=== PATIENT | male | born 1960 | race Caucasian/White ===

== ENCOUNTER 2024-02-07 18:43 | Emergency (ER) | payer SELFPAY ==
--- NOTE | 2024-02-07 19:32 | XR ---
EXAMINATION TYPE: XR chest 2V DATE OF EXAM: 02/07/2024 COMPARISON: 01/14/2014 INDICATION: Chest pain TECHNIQUE: Frontal and lateral views of the chest are obtained. FINDINGS: The heart size is normal. The pulmonary vasculature is normal. The lungs are clear. IMPRESSION: 1. No acute pulmonary process.
[2024-02-07 19:39] LABS: Basophils % (A) 1 %; Eosinophils # (A) 0.2 k/uL (0-0.7); Eosinophils % (A) 3 %; HCT 45.6 % (39.0-53.0); HGB 14.9 gm/dL (13.0-17.5); Lymphocytes # (A) 1.5 k/uL (1.0-4.8); Lymphocytes % (A) 19 %; MCH 33.4 pg (25.0-35.0); MCHC 32.6 g/dL (31.0-37.0); MCV 102.4 fL (80.0-100.0); Macrocytosis Slight; Mean Platelet Volume 7.3; Monocytes # (A) 0.4 k/uL (0-1.0); Monocytes % (A) 6 %; Neutrophils # (A) 5.3 k/uL (1.3-7.7); Neutrophils % (A) 70 %; Platelet Count 301 k/uL (150-450); RBC 4.45 m/uL (4.30-5.90); RDW 12.8 % (11.5-15.5); WBC 7.6 k/uL (3.8-10.6)
[2024-02-07 19:44] LABS: ALT 18 U/L (4-49); AST 27 U/L (17-59); African American GFR (CKD) 84 (>60 ml/min/1.73 sqM); Albumin 4.6 g/dL (3.5-5.0); Alkaline Phosphatase 52 U/L (38-126); Anion Gap 9 mmol/L; Blood Urea Nitrogen 16 mg/dL (9-20); Calcium 9.4 mg/dL (8.4-10.2); Carbon Dioxide 24 mmol/L (22-30); Chloride 105 mmol/L (98-107); Glucose 125 mg/dL (74-99); Magnesium 2.3 mg/dL (1.6-2.3); Non-African American GFR(CKD) 73 (>60 ml/min/1.73 sqM); Sodium 138 mmol/L (137-145); Total Bilirubin 0.8 mg/dL (0.2-1.3)
[2024-02-07 19:45] LABS: Partial Thromboplastin Time 24.9 sec (22.0-30.0); Prothrombin Time 11.3 sec (10.0-12.5)
[2024-02-07 19:52] LABS: Potassium 3.9 mmol/L (3.5-5.1)
--- NOTE | 2024-02-07 20:34 | ED ---
Chest Pain HPI - General Source: patient, RN notes reviewed Mode of arrival: ambulatory Limitations: no limitations <Kev Gillespie - Last Filed: 02/07/24 20:35> <Stacey Goddard - Last Filed: 02/08/24 01:35> - General Chief Complaint: Chest Pain Stated Complaint: chest pain Time Seen by Provider: 02/07/24 20:29 - History of Present Illness Initial Comments: Quick note 63-year-old male presenting to the ED with complaints of chest pain intermittent for the last 3 days. States it is left-sided in nature. Pain does not radiate. Also does note some pain of his left upper back. Pain does not seem to radiate from his chest. States he thought symptoms were due to to history of ulcers and has been taking his medications for this which seem to help. (Kev Gillespie) - Related Data Home Medications Medication Instructions Recorded Confirmed Mag Hydrox/Al Hydrox/Simeth 1 dose PO DIRECTED PRN 01/14/14 09/24/14 [Maalox] Omeprazole [PriLOSEC] 1 tab PO DAILY 01/14/14 09/24/14 Previous Rx's Medication Instructions Recorded Amoxicillin/Potassium Clav 1 each PO Q12HR #20 tab 09/24/14 [Augmentin 875-125 Tablet] Hydrocodone/Acetaminophen [[place] 1 each PO Q6HR PRN #20 tab 09/24/14 5-325] Ondansetron Odt [Zofran ODT] 4 mg PO Q8HR PRN #10 tab 09/24/14 Allergies Allergy/AdvReac Type Severity Reaction Status Date / Time No Known Allergies Allergy Verified 02/07/24 18:50 Review of Systems ROS Other: All systems not noted in ROS Statement are negative. <Kev Gillespie - Last Filed: 02/07/24 20:35> ROS Other: All systems not noted in ROS Statement are negative. <Stacey Goddard - Last Filed: 02/08/24 01:35> ROS Statement: Those systems with pertinent positive or pertinent negative responses have been documented in the HPI. Past Medical History Past Medical History: GERD/Reflux Additional Past Medical History / Comment(s): stomach ulcers, ibs History of Any Multi-Drug Resistant Organisms: None Reported Past Surgical History: No Surgical Hx Reported Past Psychological History: No Psychological Hx Reported Smoking Status: Never smoker Past Alcohol Use History: Occasional Past Drug Use History: None Reported <Kev Gillespie - Last Filed: 02/07/24 20:35> General Exam Limitations: no limitations <Kev Gillespie - Last Filed: 02/07/24 20:35> - General Exam Comments Initial Comments: Visual Physical Exam Vital signs reviewed General: Well-appearing, nontoxic, no acute distress. Head: Normocephalic, atraumatic Eyes: PERRLA, EOMI ENT: Airway patent Chest: Nonlabored breathing Skin: No visual rash, normal skin tone Neuro: Alert and oriented 3 Musculoskeletal: No gross abnormalities. Radial pulses equal and symmetric bilaterally. (Kev Gillespie) Course Vital Signs 02/07/24 02/07/24 02/07/24 18:48 21:55 22:55 Temperature 98.4 F 97.9 F 97.6 F Pulse Rate 85 66 66 Respiratory 18 16 16 Rate Blood Pressure 179/100 170/100 167/107 O2 Sat by Pulse 98 98 99 Oximetry Chest Pain MDM <Kev Gillespie - Last Filed: 02/07/24 20:35> <Stacey Goddard - Last Filed: 02/08/24 01:35> - MDM Quicknote portion performed. Signed Kev Gillespie PA-C (Kev Gillespie) Was pt. sent in by a medical professional or institution ([facility], WAREHOUSE MATERIAL HANDLER, urgent care, hospital, or snf...) When possible be specific @ -[No] Did you speak to anyone other than the patient for history (EMS, parent, family, police, friend...)? What history was obtained from this source @ -[No] Did you review nursing and triage notes (agree or disagree)? Why? @ -[I reviewed and agree with nursing and triage notes] Were old charts reviewed (outside hosp., previous admission, EMS record, old EKG, old radiological studies, urgent care reports/EKG's, snf records)? Report findings @ -[No old charts were reviewed] Differential Diagnosis (chest pain, altered mental status, abdominal pain women, abdominal pain men, vaginal bleeding, weakness, fever, dyspnea, syncope, headache, dizziness, GI bleed, back pain, seizure, CVA, palpatations, mental health, musculoskeletal)? @ -[not applicable] EKG interpreted by me (3pts min.). @ -Yes and demonstrates sinus rhythm with a rate of 76. GA interval 225. QRS 88. QTc of 404. No acute ST segment elevations or depressions X-rays interpreted by me (1pt min.). @ -[None done] CT interpreted by me (1pt min.). @ -[None done] U/S interpreted by me (1pt. min.). @ -[None done] What testing was considered but not performed or refused? (CT, X-rays, U/S, labs)? Why? @ -[None] What meds were considered but not given or refused? Why? @ -[None] Did you discuss the management of the patient with other professionals (professionals i.e. , PA, WAREHOUSE MATERIAL HANDLER, lab, RT, psych nurse, social group worker, acute care nurse practitioner, teacher, railroad police officer, case monitor)? Give summary @ -[No] Was smoking cessation discussed for >3mins.? @ -[No] Was critical care preformed (if so, how long)? @ -[No] Were there social determinants of health that impacted care today? How? (Homelessness, low income, unemployed, alcoholism, drug addiction, transportation, low edu. Level, literacy, decrease access to med. care, [facility], rehab)? @ -[No] Was there de-escalation of care discussed even if they declined (Discuss DNR or withdrawal of care, Hospice)? DNR status @ -[No] What co-morbidities impacted this encounter? (DM, HTN, Smoking, COPD, CAD, Cancer, CVA, ARF, Chemo, Hep., AIDS, mental health diagnosis, sleep apnea, mor bid obesity)? @ -[None] Was patient admitted / discharged? Hospital course, mention meds given and route, prescriptions, significant lab abnormalities, going to OR and other pertinent info. @ -[hospital course] Undiagnosed new problem with uncertain prognosis? @ -[No] Drug Therapy requiring intensive monitoring for toxicity (Heparin, Nitro, Insulin, Cardizem)? @ -[No] Were any procedures done? @ -[No] Diagnosis/symptom? @ -[default] Acute, or Chronic, or Acute on Chronic? @ -[default] Uncomplicated (without systemic symptoms) or Complicated (systemic symptoms)? @ -[default] Side effects of treatment? @ -[No] Exacerbation, Progression, or Severe Exacerbation? @ -[No] Poses a threat to life or bodily function? How? (Chest pain, [place], [place], pneumonia, PE, COPD, DKA, ARF, appy, cholecystitis, CVA, Diverticulitis, Homicidal, Suicidal, threat to staff... and all critical care pts) @ -[No] (Stacey Goddard) Disposition <Kev Gillespie - Last Filed: 02/07/24 20:35> Is patient prescribed a controlled substance at d/c from ED?: No Time of Disposition: 22:50 <Stacey Goddard - Last Filed: 02/08/24 01:35> Clinical Impression: Chest pain, Hypertension Disposition: HOME SELF-CARE Condition: Stable Instructions (If sedation given, give patient instructions): Chest Pain (ED) Additional Instructions: Please purchase a blood pressure cuff. Check your blood pressure twice daily and keep a log. Follow-up with your primary care doctor and discuss your blood pressure readings as well as going on another medication for your high cholesterol. I recommend a stress test and an echo of your heart. You need a repeat EGD (scope). I recommend cutting down on any alcohol due to your history of gastric ulcers. Return to the emergency department for any new or worsening symptoms Referrals: José Gates Jr, [Primary Care Provider] - 1-2 days
[2024-02-07 22:12] VITALS: PULSE 66; RESP 16
[2024-02-07 23:03] VITALS: BP 167/107; TEMP 97.6
== END 2024-02-07 23:03 | disposition home or self-care (01) ==
LOC: EC 18:43
DX: I10 Essential (primary) hypertension (principal)
CPT/HCPCS: 36415; 71046; 80053; 83735; 84484; 85025; 85610; 85730; 93005; 99285

== ENCOUNTER 2024-02-08 13:10 | Observation (INO) | payer OTHER ==
--- NOTE | 2024-02-08 13:38 | ED ---
Chest Pain HPI - General Source: patient, RN notes reviewed Mode of arrival: ambulatory Limitations: no limitations <Ramsey Etienne - Last Filed: 02/08/24 13:37> - General Source: patient, RN notes reviewed, old records reviewed Mode of arrival: ambulatory Limitations: no limitations - History of Present Illness MD Complaint: chest pain -: days(s) Onset: during rest Pain Location: substernal, left chest Pain Radiation: none, LUE Severity: moderate Severity scale (1-10): 4 Quality: tightness, heaviness Consistency: constant Improves With: nothing Worsens With: nothing Anginal Symptoms: sense of impending doom Other Symptoms: palpitations Treatments Prior to Arrival: none <Abe Mejia - Last Filed: 02/08/24 17:02> - General Chief Complaint: Chest Pain Stated Complaint: Chest pains Time Seen by Provider: 02/08/24 13:18 - History of Present Illness Initial Comments: Quick note 63-year-old male presents emergency department complaint of chest pain he was seen here yesterday was discharged he is seen his PCP today who send there was some changes within his EKG and advised him to follow-up. (Ramsey Etienne) This is a 63 male to the ED co chest pain weakness and SOB, patient has high cholesterol, patient still with chest pain. (Abe Mejia) - Related Data Home Medications Medication Instructions Recorded Confirmed Mag Hydrox/Al Hydrox/Simeth 1 dose PO DIRECTED PRN 01/14/14 09/24/14 [Maalox] Omeprazole [PriLOSEC] 1 tab PO DAILY 01/14/14 09/24/14 Previous Rx's Medication Instructions Recorded Amoxicillin/Potassium Clav 1 each PO Q12HR #20 tab 09/24/14 [Augmentin 875-125 Tablet] Hydrocodone/Acetaminophen [[place] 1 each PO Q6HR PRN #20 tab 09/24/14 5-325] Ondansetron Odt [Zofran ODT] 4 mg PO Q8HR PRN #10 tab 09/24/14 Allergies Allergy/AdvReac Type Severity Reaction Status Date / Time No Known Allergies Allergy Verified 02/08/24 13:16 Review of Systems ROS Other: All systems not noted in ROS Statement are negative. <Ramsey Etienne - Last Filed: 02/08/24 13:37> ROS Other: All systems not noted in ROS Statement are negative. <Abe Mejia - Last Filed: 02/08/24 17:02> ROS Statement: Those systems with pertinent positive or pertinent negative responses have been documented in the HPI. EKG Findings - EKG Comments: EKG Findings:: EKG is sinus 84 TN 204 QRS 90 QTc 388 - EKG Results: EKG: interpreted by ERMD <Abe Mejia - Last Filed: 02/08/24 17:02> Past Medical History Past Medical History: GERD/Reflux Additional Past Medical History / Comment(s): stomach ulcers, ibs History of Any Multi-Drug Resistant Organisms: None Reported Past Surgical History: No Surgical Hx Reported Past Psychological History: No Psychological Hx Reported Smoking Status: Never smoker Past Alcohol Use History: Occasional Past Drug Use History: None Reported <Ramsey Etienne - Last Filed: 02/08/24 13:37> General Exam Limitations: no limitations <Ramsey Etienne - Last Filed: 02/08/24 13:37> General appearance: alert, in no apparent distress Head exam: Present: atraumatic, normocephalic, normal inspection Eye exam: Present: normal appearance, PERRL, EOMI. Absent: scleral icterus, conjunctival injection, periorbital swelling ENT exam: Present: normal exam, mucous membranes moist Neck exam: Present: normal inspection. Absent: tenderness, meningismus, lymphadenopathy Respiratory exam: Present: normal lung sounds bilaterally. Absent: respiratory distress, wheezes, rales, rhonchi, stridor Cardiovascular Exam: Present: regular rate, normal rhythm, normal heart sounds. Absent: systolic murmur, diastolic murmur, rubs, gallop, clicks GI/Abdominal exam: Present: soft, normal bowel sounds. Absent: distended, tenderness, guarding, rebound, rigid Extremities exam: Present: normal inspection, full ROM, normal capillary refill. Absent: tenderness, pedal edema, joint swelling, calf tenderness Back exam: Present: normal inspection Neurological exam: Present: alert, oriented X3, CN II-XII intact Psychiatric exam: Present: normal affect, normal mood Skin exam: Present: warm, dry, intact, normal color. Absent: rash <Abe Mejia - Last Filed: 02/08/24 17:02> - General Exam Comments Initial Comments: Visual Physical Exam Vital signs reviewed General: Well-appearing, nontoxic, no acute distress. Head: Normocephalic, atraumatic Eyes: PERRLA, EOMI ENT: Airway patent Chest: Nonlabored breathing Skin: No visual rash, normal skin tone Neuro: Alert and oriented 3 Musculoskeletal: No gross abnormalities (Ramsey Etienne) Course <Abe Mejia - Last Filed: 02/08/24 17:02> Vital Signs 02/08/24 13:13 Temperature 98.0 F Pulse Rate 94 Respiratory 18 Rate Blood Pressure 160/116 O2 Sat by Pulse 97 Oximetry - Reevaluation(s) Reevaluation #1: 02/08/24 17:02 Medical records reviewed (Abe Mejia) Reevaluation #2: 02/08/24 17:02 Patient still with chest pain (Abe Mejia) Reevaluation #3: 02/08/24 17:02 Patient informed of results questions answered (Abe Mejia) Reevaluation #4: Was pt. sent in by a medical professional or institution (, PA, DECAL APPLIER, urgent care, hospital, or jail...) When possible be specific @ -no Did you speak to anyone other than the patient for history (EMS, parent, family, police, friend...)? What history was obtained from this source @ -no Did you review nursing and triage notes (agree or disagree)? Why? @ -agree Are old charts reviewed (outside hosp., previous admission, EMS record, old EKG, old radiological studies, urgent care reports/EKG's, jail records)? Report findings @ -yes Differential Diagnosis (chest pain, altered mental status, abdominal pain women, abdominal pain men, vaginal bleeding, weakness, fever, dyspnea, syncope, headache, dizziness, GI bleed, back pain, seizure, CVA, palpatations, mental health, musculoskeletal)? @ -prior EKG interpreted by me (3pts min.). @ -yes X-rays interpreted by me (1pt min.). @ -yes negative for acute disease CT interpreted by me (1pt min.). @ -no U/S interpreted by me (1pt. min.). @ -no What testing was considered but not performed or refused? (CT, X-rays, U/S, labs)? Why? @ -none What meds were considered but not given or refused? Why? @ -none Did you discuss the management of the patient with other professionals (professionals i.e. , PA, DECAL APPLIER, lab, RT, psych nurse, social worker masters, marriage counselor minister, teacher, licensing officer, rehabilitation caseworker)? Give summary @ -no Was smoking cessation discussed for >3mins.? @ -no Was critical care preformed (if so, how long)? @ -no Were there social determinants of health that impacted care today? How? (Homelessness, low income, unemployed, alcoholism, drug addiction, transportation, low edu. Level, literacy, decrease access to med. care, [facility], rehab)? @ -none Was there de-escalation of care discussed even if they declined (Discuss DNR or withdrawal of care, Hospice)? DNR status @ -no What co-morbidities impacted this encounter? (DM, HTN, Smoking, COPD, CAD, Cancer, CVA, ARF, Chemo, Hep., AIDS, mental health diagnosis, sleep apnea, morbid obesity)? @ -none Was patient admitted / discharged? Hospital course, mention meds given and route, prescriptions, significant lab abnormalities, going to OR and other pertinent info. @ - Undiagnosed new problem with uncertain prognosis? @ -no Drug Therapy requiring intensive monitoring for toxicity (Heparin, Nitro, Insulin, Cardizem)? @ -no Were any procedures done? @ -no Diagnosis/symptom? @ - Acute, or Chronic, or Acute on Chronic? @ -Acute Uncomplicated (without systemic symptoms) or Complicated (systemic symptoms)? @ -Complicated Side effects of treatment? @ -no Exacerbation, Progression, or Severe Exacerbation? @ -exacerbation Poses a threat to life or bodily function? How? (Chest pain, [place], [place], pneumonia, PE, COPD, DKA, ARF, appy, cholecystitis, CVA, Diverticulitis, Homicidal, Suicidal, threat to staff... and all critical care pts) @ -yes (Abe Mejia) Reevaluation #5: Differential Chest Pain: Stable Angina, Unstable Angina, STEMI, NSTEMI Aortic Dissection, Pneumothorax, Musculoskeletal, Esophageal Spasm GERD, Cholecystitis, Pancreatitis, Zoster, this is not meant to be an all-inclusive list. (Abe Mejia) - Consultations Consultation #1: Spoke with Dr. Gates who agrees to admit this patient (Abe Mejia) Chest Pain MDM <Ramsey Etienne - Last Filed: 02/08/24 13:37> - MDM I completed the quick note portion of this chart signed Ramsey Etinene PA-C (Ramsey Etienne) Disposition <Ramsey Etienne - Last Filed: 02/08/24 13:37> Is patient prescribed a controlled substance at d/c from ED?: No Time of Disposition: 17:00 <Abe Mejia - Last Filed: 02/08/24 17:02> Clinical Impression: Chest wall pain, Chest pain, Hypertension, Atypical chest pain Disposition: ADMITTED IP TO THIS HOSP Condition: Fair Referrals: José Gates Jr, DO [Primary Care Provider] - 1-2 days
[2024-02-08 14:20] LABS: ALT 18 U/L (4-49); AST 25 U/L (17-59); African American GFR (CKD) 82 (>60 ml/min/1.73 sqM); Albumin 4.5 g/dL (3.5-5.0); Alkaline Phosphatase 49 U/L (38-126); Anion Gap 8 mmol/L; Blood Urea Nitrogen 17 mg/dL (9-20); Calcium 9.5 mg/dL (8.4-10.2); Carbon Dioxide 24 mmol/L (22-30); Chloride 108 mmol/L (98-107); Glucose 125 mg/dL (74-99); Magnesium 2.2 mg/dL (1.6-2.3); Non-African American GFR(CKD) 71 (>60 ml/min/1.73 sqM); Partial Thromboplastin Time 24.6 sec (22.0-30.0); Potassium 3.9 mmol/L (3.5-5.1); Sodium 140 mmol/L (137-145); Total Bilirubin 0.7 mg/dL (0.2-1.3)
[2024-02-08 14:27] LABS: NT-Pro-B-Type Natriuretic Pept 60 pg/mL
[2024-02-08 14:31] LABS: Basophils % (A) 1 %; Eosinophils # (A) 0.1 k/uL (0-0.7); Eosinophils % (A) 2 %; HCT 47.3 % (39.0-53.0); HGB 15.5 gm/dL (13.0-17.5); Lymphocytes # (A) 0.7 k/uL (1.0-4.8); Lymphocytes % (A) 11 %; MCH 33.5 pg (25.0-35.0); MCHC 32.7 g/dL (31.0-37.0); MCV 102.5 fL (80.0-100.0); Macrocytosis Slight; Mean Platelet Volume 7.8; Monocytes # (A) 0.5 k/uL (0-1.0); Monocytes % (A) 8 %; Neutrophils # (A) 5.1 k/uL (1.3-7.7); Neutrophils % (A) 78 %; Platelet Count 277 k/uL (150-450); RBC 4.62 m/uL (4.30-5.90); RDW 12.9 % (11.5-15.5); WBC 6.5 k/uL (3.8-10.6)
[2024-02-08] MEDS ORDERED: MORPHINE SULFATE 4 MG/ML SYRINGE IV PRN (17:28)
[2024-02-08] MEDS ORDERED: NITROGLYCERIN SL TABS 0.4 MG TAB SUBLINGUAL PRN (17:28)
[2024-02-08] MEDS: SODIUM CHLORIDE 0.9% 1,000 ML IV SCH (17:48)
[2024-02-08] MEDS: ASPIRIN 81 MG PO STA (21:11)
[2024-02-08] MEDS ORDERED: CALCIUM CARBONATE 500 MG CHEWABLE PO PRN (23:06)
[2024-02-08] MEDS: MAG HYDROX/AL HYDROX/SIMETH 30 ML CUP PO SCH (23:44)
[2024-02-09] MEDS: PANTOPRAZOLE 40 MG TABLET PO SCH (06:02)
--- NOTE | 2024-02-09 06:48 | P.CRDCN ---
History of Present Illness History of present illness: HISTORY OF PRESENTING ILLNESS This is a pleasant 63-year-old with past medical history significant for alcohol use. He does not follow with a road consultant. He states over the last few days he has been having intermittent chest pain not necessarily associated with any exertion. Some of it is reproducible with palpation of his left second rib. He denies any recent trauma, fevers, chills. Denies any associated nausea or diaphoresis. Does have some mild shortness breath. Also at times is feeling lightheaded which is new for him. His blood pressure has been elevated at the 160s over 100 range. He states normally alternates in the 130s over 80s. He was seen in the emergency department and sent home however follow-up with PCP and had EKG changes and therefore sent back to emergency department. EKG does show sinus rhythm with diffuse ST depressions with no significant comparison. His last stress test was 8 years ago he did have abnormal EKG response however normal Cardiolite response. He has not smoked, drinks 2-3 glasses of wine a day and no illicit drugs. No family history of CAD REVIEW OF SYSTEMS At the time of my exam: CONSTITUTIONAL: Denies fever or chills. CARDIOVASCULAR: +chest pain, +shortness of breath, no orthopnea, PND or palpitations. RESPIRATORY: Denies cough. GASTROINTESTINAL: Denies abdominal pain, diarrhea, constipation, nausea or vomiting. MUSCULOSKELETAL: Denies myalgias. NEUROLOGIC: Denies numbness, tingling or weakness. ENDOCRINE: Denies fatigue, weight change, polydipsia or polyurina. GENITOURINARY: Denies burning, hematuria or urgency with micturation. HEMATOLOGIC: Denies history of anemia or bleeding. PHYSICAL EXAMINATION Vital signs reviewed. CONSTITUTIONAL: No apparent distress. HEENT: Head is normocephalic. Pupils are equal, round. Sclerae anicteric. Mucous membranes of the mouth are moist. No JVD. No carotid bruit. CHEST EXAMINATION: Lungs are clear to auscultation. +Chest pain with palpation HEART EXAMINATION: Regular rate and rhythm. S1, S2 heard. No murmurs, gallops or rub. ABDOMEN: Soft, nontender. Positive bowel sounds. EXTREMITIES: 2+ peripheral pulses, no lower extremity edema and no calf tenderness. NEUROLOGIC EXAMINATION: Patient is awake, alert and oriented x3. ASSESSMENT Atypical chest pain somewhat reproducible on exam Dyspnea Abnormal EKG Alcohol use Lightheadedness Hypertension newly diagnosed baby elevated while in hospital PLAN Patient with abnormal EKG however fairly atypical symptoms. We will check d- dimer to rule out any PE. Check echo as well as stress test. Lisinopril was added and monitor response however may be some component of whitecoat hypertension. Past Medical History Past Medical History: GERD/Reflux Additional Past Medical History / Comment(s): stomach ulcers, ibs History of Any Multi-Drug Resistant Organisms: None Reported Past Surgical History: No Surgical Hx Reported Past Psychological History: No Psychological Hx Reported Smoking Status: Never smoker Past Alcohol Use History: Occasional Past Drug Use History: None Reported Medications and Allergies Home Medications Medication Instructions Recorded Confirmed Type Omeprazole [PriLOSEC] 40 tab PO BID 01/14/14 02/08/24 History Mag Hydrox/Aluminum Hyd/Simeth 30 ml PO TID 02/08/24 02/08/24 History [Mylanta Maximum Strength Liq] Tavaborole [Kerydin] 1 applic TOPICAL DAILY 02/08/24 02/08/24 History Allergies Allergy/AdvReac Type Severity Reaction Status Date / Time No Known Allergies Allergy Verified 02/08/24 18:04 Physical Exam Vitals: Vital Signs Temp Pulse Pulse Resp BP BP Pulse Ox 02/09/24 02:04 97.8 F 61 16 160/100 99 02/08/24 21:58 98.3 F 74 16 172/107 99 02/08/24 21:39 98.3 F 77 18 168/103 98 02/08/24 19:27 98.7 F 76 16 166/95 100 02/08/24 17:49 72 16 159/109 100 02/08/24 13:13 98.0 F 94 18 160/116 97 Intake and Output 02/08/24 02/08/24 02/09/24 14:59 22:59 06:59 Other: # Voids 2 Weight 83.915 kg 83.915 kg Results 02/08/24 13:54 02/08/24 13:54 Cardiac Enzymes 02/08/24 02/08/24 02/08/24 Range/Units 13:54 13:54 13:54 WBC 6.5 (3.8-10.6) k/uL RBC 4.62 (4.30-5.90) m/uL Hgb 15.5 (13.0-17.5) gm/dL Hct 47.3 (39.0-53.0) % MCV 102.5 H (80.0-100.0) fL MCH 33.5 (25.0-35.0) pg MCHC 32.7 (31.0-37.0) g/dL RDW 12.9 (11.5-15.5) % Plt Count 277 (150-450) k/uL MPV 7.8 Neutrophils % 78 % Lymphocytes % 11 % Monocytes % 8 % Eosinophils % 2 % Basophils % 1 % Neutrophils # 5.1 (1.3-7.7) k/uL Lymphocytes # 0.7 L (1.0-4.8) k/uL Monocytes # 0.5 (0-1.0) k/uL Eosinophils # 0.1 (0-0.7) k/uL Basophils # 0.0 (0-0.2) k/uL Macrocytosis Slight PT 11.0 (10.0-12.5) sec INR 1.0 (<1.2) APTT 24.6 (22.0-30.0) sec Sodium 140 (137-145) mmol/L Potassium 3.9 (3.5-5.1) mmol/L Chloride 108 H (98-107) mmol/L Carbon Dioxide 24 (22-30) mmol/L Anion Gap 8 mmol/L BUN 17 (9-20) mg/dL Creatinine 1.10 (0.66-1.25) mg/dL Est GFR (CKD-EPI)AfAm 82 (>60 ml/min/1.73 sqM) Est GFR (CKD-EPI)NonAf 71 (>60 ml/min/1.73 sqM) Glucose 125 H (74-99) mg/dL Calcium 9.5 (8.4-10.2) mg/dL Magnesium 2.2 (1.6-2.3) mg/dL Total Bilirubin 0.7 (0.2-1.3) mg/dL AST 25 (17-59) U/L ALT 18 (4-49) U/L Alkaline Phosphatase 49 (38-126) U/L Troponin I (0.000-0.034) ng/mL NT-Pro-B Natriuret Pep 60 pg/mL Total Protein 7.0 (6.3-8.2) g/dL Albumin 4.5 (3.5-5.0) g/dL 02/08/24 02/08/24 02/08/24 Range/Units 13:54 17:55 21:21 WBC (3.8-10.6) k/uL RBC (4.30-5.90) m/uL Hgb (13.0-17.5) gm/dL Hct (39.0-53.0) % MCV (80.0-100.0) fL MCH (25.0-35.0) pg MCHC (31.0-37.0) g/dL RDW (11.5-15.5) % Plt Count (150-450) k/uL MPV Neutrophils % % Lymphocytes % % Monocytes % % Eosinophils % % Basophils % % Neutrophils # (1.3-7.7) k/uL Lymphocytes # (1.0-4.8) k/uL Monocytes # (0-1.0) k/uL Eosinophils # (0-0.7) k/uL Basophils # (0-0.2) k/uL Macrocytosis PT (10.0-12.5) sec INR (<1.2) APTT (22.0-30.0) sec Sodium (137-145) mmol/L Potassium (3.5-5.1) mmol/L Chloride (98-107) mmol/L Carbon Dioxide (22-30) mmol/L Anion Gap mmol/L BUN (9-20) mg/dL Creatinine (0.66-1.25) mg/dL Est GFR (CKD-EPI)AfAm (>60 ml/min/1.73 sqM) Est GFR (CKD-EPI)NonAf (>60 ml/min/1.73 sqM) Glucose (74-99) mg/dL Calcium (8.4-10.2) mg/dL Magnesium (1.6-2.3) mg/dL Total Bilirubin (0.2-1.3) mg/dL AST (17-59) U/L ALT (4-49) U/L Alkaline Phosphatase (38-126) U/L Troponin I <0.012 <0.012 <0.012 (0.000-0.034) ng/mL NT-Pro-B Natriuret Pep pg/mL Total Protein (6.3-8.2) g/dL Albumin (3.5-5.0) g/dL Coagulation 02/08/24 Range/Units 13:54 PT 11.0 (10.0-12.5) sec APTT 24.6 (22.0-30.0) sec CBC 02/08/24 Range/Units 13:54 WBC 6.5 (3.8-10.6) k/uL RBC 4.62 (4.30-5.90) m/uL Hgb 15.5 (13.0-17.5) gm/dL Hct 47.3 (39.0-53.0) % Plt Count 277 (150-450) k/uL Comprehensive Metabolic Panel 02/08/24 Range/Units 13:54 Sodium 140 (137-145) mmol/L Potassium 3.9 (3.5-5.1) mmol/L Chloride 108 H (98-107) mmol/L Carbon Dioxide 24 (22-30) mmol/L BUN 17 (9-20) mg/dL Creatinine 1.10 (0.66-1.25) mg/dL Glucose 125 H (74-99) mg/dL Calcium 9.5 (8.4-10.2) mg/dL AST 25 (17-59) U/L ALT 18 (4-49) U/L Alkaline Phosphatase 49 (38-126) U/L Total Protein 7.0 (6.3-8.2) g/dL Albumin 4.5 (3.5-5.0) g/dL Current Medications Generic Name Dose Route Start Last Admin Trade Name Freq PRN Reason Stop Dose Admin Al Hydroxide/Mg Hydroxide 30 ml 02/08/24 23:30 02/08/24 23:44 Mag Hydrox/Al Hydrox/Simeth 30 Ml Cup PO 30 ml TID SOO Administration Aspirin 325 mg 02/09/24 09:00 Aspirin 325 Mg Tab PO DAILY [facility] Sodium Chloride 1,000 mls @ 100 mls/hr 02/08/24 17:30 02/09/24 03:51 Saline 0.9% IV Not Given .Q10H [facility] Lisinopril 5 mg 02/09/24 09:00 Lisinopril 5 Mg Tab PO DAILY [facility] Morphine Sulfate 4 mg 02/08/24 17:28 Morphine Sulfate 4 Mg/Ml Syringe IV Q4HR PRN Chest Pain Nitroglycerin 0.4 mg 02/08/24 17:28 Nitroglycerin Sl Tabs 0.4 Mg Tab SUBLINGUAL Q5M PRN Chest Pain Pantoprazole Sodium 40 mg 02/09/24 07:30 02/09/24 06:02 Pantoprazole 40 Mg Tablet PO 40 mg AC-BID SOO Administration Intake and Output 02/08/24 02/08/24 02/09/24 14:59 22:59 06:59 Other: # Voids 2 Weight 83.915 kg 83.915 kg Patient Weight 02/09/24 06:59 Weight 83.915 kg 02/08/24 13:54 02/08/24 13:54
[2024-02-09 08:07] VITALS: TEMP 98.4
[2024-02-09 08:58] LABS: Chol/HDL Ratio 2.54 Ratio; LDL Cholesterol,Calculated 117.8 mg/dL (0.0-131.0)
[2024-02-09] MEDS: ASPIRIN 325 MG TAB PO SCH (10:06)
[2024-02-09] MEDS: lisinopriL 5 MG TAB PO SCH (10:06)
[2024-02-09] MEDS ORDERED: LORazepam 2 MG/ML INJ IV PRN ×3 (12:03)
--- NOTE | 2024-02-09 12:30 | P.HPIM ---
History of Present Illness H&P Date: 02/09/24 Chief Complaint: Chest pain History and Physical and Discharge Summary: This is a 63-year-old gentleman with past medical history significant for gastr oesophageal reflux disease, IBS, stomach ulcers, alcohol use-drinks 2 to 3 glasses of wine daily, returned to the ER with complaints of fluctuating nonexertional chest pain on and off for the last 2 to 3 days, accompanied by mild shortness of breath, lightheadedness and EKG changes noted at PCPs office. Denies nausea vomiting, diaphoresis. Reports more sedentary over the last 6 months and some injury at the end of last summer. hypertensive on admission, which patient states is new for him, diffuse ST depressions reported on EKG. Troponins negative x 3. Electrolytes and renal function stable. Evaluated by cardiology, lisinopril added to med regimen ,patient is scheduled for exercise stress echo today. Review of Systems ROS Statement: Those systems with pertinent positive or pertinent negative responses have been documented in the HPI. ROS Other: All systems not noted in ROS Statement are negative. Past Medical History Past Medical History: GERD/Reflux Additional Past Medical History / Comment(s): stomach ulcers, ibs History of Any Multi-Drug Resistant Organisms: None Reported Past Surgical History: No Surgical Hx Reported Past Psychological History: No Psychological Hx Reported Smoking Status: Never smoker Past Alcohol Use History: Occasional Past Drug Use History: None Reported Medications and Allergies Home Medications Medication Instructions Recorded Confirmed Type Omeprazole [PriLOSEC] 40 tab PO BID 01/14/14 02/08/24 History Mag Hydrox/Aluminum Hyd/Simeth 30 ml PO TID 02/08/24 02/08/24 History [Mylanta Maximum Strength Liq] Tavaborole [Kerydin] 1 applic TOPICAL DAILY 02/08/24 02/08/24 History lisinopriL [Zestril] 5 mg PO DAILY #30 tab 02/09/24 Rx Allergies Allergy/AdvReac Type Severity Reaction Status Date / Time No Known Allergies Allergy Verified 02/08/24 18:04 Physical Exam Vitals: Vital Signs Temp Pulse Pulse Resp BP BP BP 02/09/24 07:00 98.4 F 64 14 154/97 02/09/24 02:04 97.8 F 61 16 160/100 02/08/24 21:58 98.3 F 74 16 172/107 02/08/24 21:39 98.3 F 77 18 168/103 02/08/24 19:27 98.7 F 76 16 166/95 02/08/24 17:49 72 16 159/109 02/08/24 13:13 98.0 F 94 18 160/116 Pulse Ox 02/09/24 07:00 98 02/09/24 02:04 99 02/08/24 21:58 99 02/08/24 21:39 98 02/08/24 19:27 100 02/08/24 17:49 100 02/08/24 13:13 97 Intake and Output 02/08/24 02/09/24 02/09/24 22:59 06:59 14:59 Other: # Voids 2 Weight 83.915 kg PHYSICAL EXAM: VITAL SIGNS: [As above GENERAL: Well-nourished ,alert and oriented x 3, sitting up in bed, no acute distress HEENT: Atraumatic, normocephalic, conjunctivae normal. eyes normal. NECK: No JVD. No thyroid enlargement. No LNs CARDIOVASCULAR: S1, S2 regular. No murmur RESPIRATION: Unlabored, equal air entry, clear to auscultation breath sounds diminished in the bases. ABDOMEN: Soft, nondistended, nontender . No guarding. no masses palpable. No ascites, No hepatosplenomegaly.Bowel sounds heard. LEGS: No edema. no swelling, no calf tenderness. NERVOUS SYSTEM: Cranial N 2-12 grossly normal.No focal deficits. Strength and sensation grossly intact. Skin: Warm and dry, no rash Results CBC & Chem 7: 02/08/24 13:54 02/08/24 13:54 Labs: Abnormal Lab Results - Last 24 Hours (Table) 02/08/24 02/08/24 02/08/24 Range/Units 13:54 13:54 13:54 MCV 102.5 H (80.0-100.0) fL Lymphocytes # 0.7 L (1.0-4.8) k/uL Chloride 108 H (98-107) mmol/L Glucose 125 H (74-99) mg/dL Cholesterol 239.00 H (0.00-200.00) mg/dL HDL Cholesterol 94.00 H (40.00-60.00) mg/dL Assessment and Plan Assessment: Chest pain accompanied by dyspnea, lightheadedness, troponins negative x 3, abnormal EKG, reproducible. Hypertension, newly diagnosed, D-dimer WNL Plan: Continue on current medication regimen ,monitoring and symptomatic treatment. Close monitoring of blood pressure. Patient will be discharged home today in a stable condition with guarded prognosis, pending cardiology testing, final DC recommendations and clearance per cardiology. Discharge Medication List Omeprazole [PriLOSEC] 40 tab PO BID 01/14/14 [History] Mag Hydrox/Aluminum Hyd/Simeth [Mylanta Maximum Strength Liq] 30 ml PO TID 02/08/24 [History] Tavaborole [Kerydin] 1 applic TOPICAL DAILY 02/08/24 [History] lisinopriL [Zestril] 5 mg PO DAILY #30 tab 02/09/24 [Rx] The impression and plan of care has been dictated as directed. : I performed a history and examination of this patient, discussed the same with the dictator. I agree with the dictator's note ,documented as a scribe. Any additional findings or plans will be noted.
--- NOTE | 2024-02-09 12:32 | CA ---
Stress Echo Report Mario Alberto Scherer Age: 63 Gender: M : 1960 Exam Date: 02/09/2024 09:42 Exam Location: [place] Stress Ht (in): 71 Wt (lb): 185 Ordering Physician: Paul Santoyo DO ([email or web address]) Referring Physician: PAUL SANTOYO,, [employer] Trolley Driver: Mehul Arevalo Technologist Procedure CPT: Indication: re: CP ICD-9 Codes: Rhythm: Patient History: Cardiac Medications: see chart Medications in past 24 hours: Contrast: N/A Stress Results Protocol: Lee Total dose(mL): NA Exercise Duration (min:sec): 7:[address] Depression (mm): Angina Score: Dan Score: METS: 8.9 Resting HR: 99 Resting BP: 157 / 99 Peak HR: 151 Peak BP: 186 / 72 Max Predicted HR: 157 96 % Max Predicted HR Target HR: 133 Double Product: 21328 Stress Summary: BP Response: Reason for Termination: Reached target heart rate or work-load Cardiac Symptoms: CHEST PAIN LEVEL"2", PAIN RESIDED AFTER 2-3 MINUTES POST ECG Analysis Resting ECG: Stress ECG: Arrhythmia: Echo Analysis Resting Echo: Peak Echo Analysis: MEASUREMENTS (Male/Female) Normal Values CONCLUSIONS Patient underwent exercise stress echo with a Lee protocol treadmill stress test. Patient exercised into Stage 3 for a total of 7 minutes and 31 seconds reaching a total of 8.9 METS. Patient's maximum heart rate was 151 which represented 96% age- predicted maximum heart rate. Patient did experience chest pain which was worse at level II and improved 3 minutes post stress. Stress EKG portion: At baseline patient's EKG showed normal sinus rhythm, normal axis, 0.[address] depressions in the inferior and lateral leads. At peak exercise, EKG showed accentuation of baseline EKG abnormalities. Stress echo portion: 2-D echocardiogram was performed in the parasternal long, personal short, apical 2 and apical four-chamber views at rest, peak exercise and in recovery. At baseline, echocardiogram showed left ventricular ejection fraction 55% without wall motion abnormalities. With peak exercise, echocardiogram shows improvement in left ventricular ejection fraction, increase contractility, decrease in left ventricular end systolic dimension without wall motion abnormalities consistent with a normal response to exercise. Conclusions: 1. Nonspecific stress EKG portion second baseline EKG abnormalities 2. Normal stress echo portion without inducible ischemia 3. Normal left ventricular EF 55% 4. Fair exercise tolerance 5. Chest pain noted with exertion. Clinical correlation recommended. Dr. Paul Santoyo DO (Electronically Signed) Final Date: 09 February 2024 12:31
--- NOTE | 2024-02-09 12:33 | CA ---
Transthoracic Echo Report Name: Mario Alberto Scherer Age: 63 Gender: M : 1960 Exam Date: 02/09/2024 09:27 Exam Location: [place] Echo Ht (in): 71 Wt (lb): 185 Ordering Physician: Paul Brunson DO ([email or web address]) Attending/Referring Phys: [employer] Operator Angela Garcia RDCS Procedure CPT: Indications: re: CP Cardiac Hx: Technical Quality: Good Contrast 1: Total Dose (mL): Contrast 2: Total Dose (mL): MEASUREMENTS (Male / Female) Normal Values 2D ECHO LV Diastolic Diameter PLAX 4.7 cm 4.2 - 5.9 / 3.9 - 5.3 cm LV Systolic Diameter PLAX 2.9 cm IVS Diastolic Thickness 1.0 cm 0.6 - 1.0 / 0.6 - 0.9 cm LVPW Diastolic Thickness 0.9 cm 0.6 - 1.0 / 0.6 - 0.9 cm LV Relative Wall Thickness 0.4 RV Internal Dim ED PLAX 2.7 cm LA Systolic Diameter LX 3.1 cm 3.0 - 4.0 / 2.7 - 3.8 cm LV Diastolic Volume MOD 4C 78.6 cm??? LV Systolic Volume MOD 4C 19.8 cm??? LV Ejection Fraction MOD 4C 74.8 % LV Cardiac Index MOD 4C 2054.6 cm???/min???m??? LV Diastolic Length 4C 9.0 cm LV Systolic Length 4C 7.3 cm LV Diastolic Volume MOD 2C 98.6 cm??? LV Systolic Volume MOD 2C 38.0 cm??? LV Ejection Fraction MOD 2C 61.4 % LV Cardiac Index MOD 2C 2116.4 cm???/min???m??? LV Diastolic Length 2C 8.8 cm LV Systolic Length 2C 7.4 cm LA Volume 58.2 cm??? 18 - 58 / 22 - 52 cm??? LA Volume Index 28.3 cm???/m??? 16 - 28 cm???/m??? M-MODE Aortic Root Diameter MM 3.2 cm AV Cusp Separation MM 2.2 cm DOPPLER AV Peak Velocity 104.2 cm/s AV Peak Gradient 4.3 mmHg MV Area PHT 3.4 cm??? Mitral E Point Velocity 83.6 cm/s Mitral A Point Velocity 92.8 cm/s Mitral E to A Ratio 0.9 MV Deceleration Time 220.3 ms FINDINGS Left Ventricle Left ventricular ejection fraction is estimated at 60-65 %. Left ventricular cavity size normal. Left ventricular wall thickness normal. Normal left ventricular wall motion. Right Ventricle Normal right ventricular size and function. Unable to estimate the right ventricular systolic pressure. Right Atrium Normal right atrial size. No right atrial thrombus or mass seen. Left Atrium Normal left atrial size. No left atrial thrombus or mass present. Mitral Valve Structurally normal mitral valve. No mitral stenosis, regurgitation or prolapse. Aortic Valve Trileaflet aortic valve. No aortic valve stenosis or regurgitation. Tricuspid Valve Structurally normal tricuspid valve. No tricuspid stenosis, regurgitation or prolapse. Pulmonic Valve Structurally normal pulmonic valve. No pulmonic regurgitation. Pericardium No pericardial effusion. Aorta Normal size aortic root and proximal ascending aorta. CONCLUSIONS Left ventricular ejection fraction 60-65% No mitral regurgitation No tricuspid regurgitation No pericardial effusion Previewed by: Dr. Paul Brunson DO (Electronically Signed) Final Date: 09 February 2024 12:32
[2024-02-09 12:36] LABS: Glucose,Whole Blood 106 mg/dL (70-110)
[2024-02-09 13:34] VITALS: BP 164/79; PULSE 65; RESP 16
== END 2024-02-09 15:00 | disposition home or self-care (01) ==
LOC: EC 13:10 → 6NMEDSUR 17:29
PROVIDERS: ADMIT Family Medicine; ATTEND Family Medicine
DX: R07.89 Other chest pain (principal); I10 Essential (primary) hypertension; R94.31 Abnormal electrocardiogram [ECG] [EKG]; F10.90 Alcohol use, unspecified, uncomplicated; K21.9 Gastro-esophageal reflux disease without esophagitis; K58.9 Irritable bowel syndrome, unspecified; E78.00 Pure hypercholesterolemia, unspecified; M79.602 Pain in left arm; R00.2 Palpitations; R06.02 Shortness of breath; R53.1 Weakness; R42 Dizziness and giddiness; Z79.899 Other long term (current) drug therapy; Z87.11 Personal history of peptic ulcer disease
CPT/HCPCS: 96361 ×3; 96360; 99285; 36415; 93005; 93306; 93351; 87338; 85379; 83880; 80061; 80053; 83735; 84484; 85025; 85610; 85730; G0378 ×2